=== PATIENT | female | born 1945 | race Caucasian/White ===

== ENCOUNTER 2017-09-19 18:53 | Inpatient (IN) | payer MEDICARE, OTHER ==
[2017-09-19 21:05] LABS: ADD MAN DIFF? NO
[2017-09-19 21:08] LABS: BASOPHILS % 0.2 % (0.0-2.0); HEMATOCRIT 36.6 % (37.0-47.0); LYMPHOCYTES % 20.3 % (15.0-51.0); MEAN CORPUSCULAR HEMOGLOBIN 31.5 pg (29.0-33.0); MEAN CORPUSCULAR HGB CONC 35.5 g/dl (32.0-37.0); MEAN CORPUSCULAR VOLUME 88.6 fl (82.0-101.0); MEAN PLATELET VOLUME 9.3 fl (7.4-10.4); MONOCYTE # 1.3 10^3/ul (0.3-0.9); MONOCYTES % 12.8 % (0.0-11.0); NEUTROPHIL # 6.7 10^3/ul (1.6-7.5); NEUTROPHILS % 66.4 % (39.0-77.0); PLATELET COUNT 375 10^3/UL (140-415); RED BLOOD COUNT 4.13 10^6/ul (4.20-5.40)
[2017-09-19] MEDS: ONDANSETRON 4 MG INJ IV ×3 (21:18→23:49)
[2017-09-19] MEDS: SOD CHLORIDE 0.9% 1,000 ML IV (21:18)
[2017-09-19 21:31] LABS: ALANINE AMINOTRANSFERASE 37 IU/L (13-69); ALBUMIN 5.1 g/dl (3.3-4.9); ALKALINE PHOSPHATASE 96 IU/L (42-121); ANION GAP 20 (8-16); ASPARTATE AMINO TRANSFERASE 45 IU/L (15-46); BILIRUBIN,INDIRECT 0.6 mg/dl (0-1.1); BILIRUBIN,TOTAL 0.6 mg/dl (0.2-1.3); BLOOD UREA NITROGEN 24 mg/dl (7-20); CALCIUM 9.4 mg/dl (8.4-10.2); CARBON DIOXIDE 32 mmol/L (21-31); CHLORIDE 93 mmol/L (97-110); CREATININE 0.72 mg/dl (0.44-1.00); GLUCOSE 126 mg/dl (70-220); LIPASE 71 U/L (23-300); SODIUM 142 mmol/L (135-144); TOTAL PROTEIN 8.5 g/dl (6.1-8.1)
[2017-09-19 21:33] LABS: POTASSIUM 2.5 mmol/L (3.5-5.1)
[2017-09-19 21:41] LABS: ADD UMIC YES; UR ASCORBIC ACID 40 mg/dL (NEGATIVE); UR BACTERIA FEW /HPF (NONE SEEN); UR BILIRUBIN (Dip) NEGATIVE (NEGATIVE); UR BLOOD (Dip) NEGATIVE (NEGATIVE); UR CLARITY CLEAR (CLEAR); UR COLOR AMBER (YELLOW); UR GLUCOSE (Dip) NEGATIVE (NEGATIVE); UR KETONES (Dip) TRACE mg/dL (NEGATIVE); UR LEUKOCYTE ESTERASE (Dip) NEGATIVE Leu/ul (NEGATIVE); UR NITRITE (Dip) NEGATIVE (NEGATIVE); UR RBC 3 /HPF (0-5); UR SPECIFIC GRAVITY (Dip) 1.021 (1.003-1.030); UR TOTAL PROTEIN (Dip) 2+ mg/dl (NEGATIVE); UR UROBILINOGEN (Dip) 1+ mg/dL (NEGATIVE); UR WBC 2 /HPF (0-5)
[2017-09-19 21:43] LABS: TROPONIN-I < 0.010 ng/ml (0.000-0.120)
[2017-09-19] MEDS: morphine 4 MG/ML VIAL IV (22:24)
[2017-09-20] MEDS ORDERED: NACL 0.9% 3 ML SYG IV
[2017-09-20] MEDS ORDERED: ACETAMINOPHEN 325 MG TAB PO
[2017-09-20] MEDS ORDERED: ONDANSETRON 4 MG INJ IV
[2017-09-20] MEDS: POTASSIUM BICARBONATE 25 MEQ TAB PO (00:18)
[2017-09-20] MEDS: METOCLOPRAMIDE 10 MG INJ IV ×4 (01:30→23:12)
[2017-09-20] MEDS: ACETAMINOPHEN 1000MG/100ML IV 100 ML IVPB (02:02)
[2017-09-20] MEDS: D5W-0.45 NACL + KCL 40 MEQ 1,000 ML IV ×4 (02:03→23:11)
[2017-09-20] MEDS ORDERED: PANTOPRAZOLE 40 MG INJ (04:52)
[2017-09-20] MEDS: HYDROmorphONE 0.5 MG/0.5 ML SYG IV (04:54)
[2017-09-20] MEDS: PANTOPRAZOLE 40 MG INJ IV (05:00)
[2017-09-20 06:33] LABS: ADD MAN DIFF? NO
[2017-09-20 06:40] LABS: BASOPHILS % 0.2 % (0.0-2.0); EOSINOPHILS % 0.2 % (0.0-7.0); HEMATOCRIT 33.9 % (37.0-47.0); HEMOGLOBIN 11.6 g/dl (12.0-16.0); LYMPHOCYTES # 2.1 10^3/ul (0.8-2.9); LYMPHOCYTES % 22.5 % (15.0-51.0); MEAN CORPUSCULAR HEMOGLOBIN 30.5 pg (29.0-33.0); MEAN CORPUSCULAR HGB CONC 34.2 g/dl (32.0-37.0); MEAN CORPUSCULAR VOLUME 89.2 fl (82.0-101.0); MEAN PLATELET VOLUME 9.7 fl (7.4-10.4); MONOCYTES % 11.2 % (0.0-11.0); NEUTROPHILS % 65.7 % (39.0-77.0); PLATELET COUNT 346 10^3/UL (140-415); RED CELL DISTRIBUTION WIDTH 12.1 % (11.5-14.5)
[2017-09-20 06:40] LABS: WHITE BLOOD COUNT 9.1 10^3/ul (4.8-10.8)
[2017-09-20] MEDS: HYDROmorphONE 1 MG/ML SYG IV ×4 (06:47→23:12)
[2017-09-20 07:14] LABS: MAGNESIUM 2.4 mg/dl (1.7-2.5)
[2017-09-20 07:47] LABS: ALANINE AMINOTRANSFERASE 33 IU/L (13-69); ALBUMIN 4.2 g/dl (3.3-4.9); ALKALINE PHOSPHATASE 70 IU/L (42-121); ANION GAP 15 (8-16); ASPARTATE AMINO TRANSFERASE 41 IU/L (15-46); BILIRUBIN,INDIRECT 0.5 mg/dl (0-1.1); BILIRUBIN,TOTAL 0.5 mg/dl (0.2-1.3); BLOOD UREA NITROGEN 20 mg/dl (7-20); CALCIUM 8.7 mg/dl (8.4-10.2); CARBON DIOXIDE 30 mmol/L (21-31); CHLORIDE 100 mmol/L (97-110); CREATININE 0.62 mg/dl (0.44-1.00); GLUCOSE 130 mg/dl (70-220); SODIUM 142 mmol/L (135-144); TOTAL PROTEIN 7.2 g/dl (6.1-8.1)
[2017-09-20 08:04] LABS: POTASSIUM 2.8 mmol/L (3.5-5.1)
[2017-09-20] MEDS: POTASSIUM CHLORIDE 100 ML IVPB ×2 (09:00→10:58)
[2017-09-20] MEDS: ENOXAPARIN 30 MG/0.3 ML SYG SC (09:04)
[2017-09-20] MEDS: ONDANSETRON 4 MG INJ IV (10:59)
[2017-09-20 16:23] LABS: POTASSIUM 3.5 mmol/L (3.5-5.1)
[2017-09-21] MEDS: HYDROmorphONE 1 MG/ML SYG IV ×4 (05:48→20:30)
[2017-09-21] MEDS: PANTOPRAZOLE 40 MG INJ IV (05:48)
[2017-09-21] MEDS: METOCLOPRAMIDE 10 MG INJ IV ×2 (05:48→15:12)
[2017-09-21 07:17] LABS: ALANINE AMINOTRANSFERASE 32 IU/L (13-69); ALBUMIN/GLOBULIN RATIO 1.48; ALKALINE PHOSPHATASE 57 IU/L (42-121); ANION GAP 13 (8-16); ASPARTATE AMINO TRANSFERASE 38 IU/L (15-46); BILIRUBIN,INDIRECT 0.3 mg/dl (0-1.1); BILIRUBIN,TOTAL 0.3 mg/dl (0.2-1.3); BLOOD UREA NITROGEN 12 mg/dl (7-20); CALCIUM 8.6 mg/dl (8.4-10.2); CARBON DIOXIDE 26 mmol/L (21-31); CHLORIDE 104 mmol/L (97-110); CREATININE 0.54 mg/dl (0.44-1.00); GLUCOSE 129 mg/dl (70-220); SODIUM 139 mmol/L (135-144); TOTAL PROTEIN 6.7 g/dl (6.1-8.1)
[2017-09-21] MEDS: D5W-0.45 NACL + KCL 40 MEQ 1,000 ML IV ×2 (07:59→16:34)
[2017-09-21] MEDS: ONDANSETRON 4 MG INJ IV ×2 (08:03→20:30)
[2017-09-21] MEDS: ENOXAPARIN 30 MG/0.3 ML SYG SC (08:05)
[2017-09-21] MEDS: ACETAMINOPHEN 1000MG/100ML IV 100 ML IVPB (12:52)
[2017-09-22] MEDS: HYDROmorphONE 1 MG/ML SYG IV ×4 (02:19→23:45)
[2017-09-22] MEDS: D5W-0.45 NACL + KCL 40 MEQ 1,000 ML IV ×3 (02:20→22:43)
[2017-09-22] MEDS: METOCLOPRAMIDE 10 MG INJ IV (03:55)
[2017-09-22] MEDS: hydrALAzine 20 MG INJ IV (03:55)
[2017-09-22] MEDS: PANTOPRAZOLE 40 MG INJ IV (06:04)
[2017-09-22] MEDS: ONDANSETRON 4 MG INJ IV (06:04)
[2017-09-22 06:33] LABS: ALANINE AMINOTRANSFERASE 70 IU/L (13-69); ALBUMIN/GLOBULIN RATIO 1.42; ALKALINE PHOSPHATASE 66 IU/L (42-121); ANION GAP 15 (8-16); ASPARTATE AMINO TRANSFERASE 69 IU/L (15-46); BILIRUBIN,INDIRECT 0.4 mg/dl (0-1.1); BILIRUBIN,TOTAL 0.4 mg/dl (0.2-1.3); BLOOD UREA NITROGEN 10 mg/dl (7-20); CALCIUM 9.1 mg/dl (8.4-10.2); CARBON DIOXIDE 24 mmol/L (21-31); CHLORIDE 102 mmol/L (97-110); CREATININE 0.44 mg/dl (0.44-1.00); GLUCOSE 120 mg/dl (70-220); SODIUM 137 mmol/L (135-144); TOTAL PROTEIN 6.8 g/dl (6.1-8.1)
[2017-09-22 06:34] LABS: PHOSPHORUS 3.2 mg/dl (2.5-4.9)
[2017-09-22 15:40] LABS: INR 1.08; PROTIME 14.1 Sec (11.9-14.9); PT RATIO 1.1
[2017-09-22 15:41] LABS: PARTIAL THROMBOPLASTIN TIME 22.2 Sec (25.0-35.0)
[2017-09-22] MEDS: ENOXAPARIN 30 MG/0.3 ML SYG SC (16:48)
[2017-09-22 17:56] LABS: AMPHETAMINE/METHAMPHETAMINE Negative (NEGATIVE); BARBITURATES Positive (NEGATIVE); BENZODIAZEPINES Negative (NEGATIVE); OPIATES Positive (NEGATIVE)
[2017-09-22 17:58] LABS: CANNABINOIDS Negative (NEGATIVE)
[2017-09-22 17:59] LABS: COCAINE Negative (NEGATIVE)
[2017-09-23] MEDS: ONDANSETRON 4 MG INJ IV ×2 (02:10→09:06)
[2017-09-23] MEDS: hydrALAzine 20 MG INJ IV ×4 (02:10→20:53)
[2017-09-23] MEDS: HYDROmorphONE 1 MG/ML SYG IV ×2 (02:10→05:29)
[2017-09-23] MEDS: D5W-0.45 NACL + KCL 40 MEQ 1,000 ML IV ×2 (02:14→12:27)
[2017-09-23] MEDS: PANTOPRAZOLE 40 MG INJ IV (05:28)
[2017-09-23 05:39] LABS: ADD MAN DIFF? NO
[2017-09-23 05:46] LABS: WHITE BLOOD COUNT 9.5 10^3/ul (4.8-10.8)
[2017-09-23 05:46] LABS: BASOPHILS % 0.3 % (0.0-2.0); EOSINOPHILS % 0.4 % (0.0-7.0); HEMATOCRIT 35.2 % (37.0-47.0); HEMOGLOBIN 12.1 g/dl (12.0-16.0); LYMPHOCYTES % 31.3 % (15.0-51.0); MEAN CORPUSCULAR HEMOGLOBIN 30.5 pg (29.0-33.0); MEAN CORPUSCULAR HGB CONC 34.4 g/dl (32.0-37.0); MEAN CORPUSCULAR VOLUME 88.7 fl (82.0-101.0); MEAN PLATELET VOLUME 9.2 fl (7.4-10.4); MONOCYTES % 10.6 % (0.0-11.0); NEUTROPHIL # 5.4 10^3/ul (1.6-7.5); PLATELET COUNT 367 10^3/UL (140-415); RED BLOOD COUNT 3.97 10^6/ul (4.20-5.40); RED CELL DISTRIBUTION WIDTH 11.6 % (11.5-14.5)
[2017-09-23 05:55] LABS: ANION GAP 11 (8-16); BLOOD UREA NITROGEN 10 mg/dl (7-20); CALCIUM 8.5 mg/dl (8.4-10.2); CARBON DIOXIDE 25 mmol/L (21-31); CHLORIDE 103 mmol/L (97-110); CREATININE 0.43 mg/dl (0.44-1.00); GLUCOSE 114 mg/dl (70-220); POTASSIUM 3.8 mmol/L (3.5-5.1); SODIUM 135 mmol/L (135-144)
[2017-09-23] MEDS: ENOXAPARIN 30 MG/0.3 ML SYG SC (08:49)
[2017-09-23] MEDS: BISACODYL (EC) 5 MG TAB PO (09:29)
[2017-09-23] MEDS: METOCLOPRAMIDE 10 MG INJ IV ×2 (12:25→18:59)
[2017-09-23] MEDS: ACETAMINOPHEN 325 MG TAB PO (17:15)
[2017-09-23] MEDS: ZOLPIDEM 5 MG TAB PO (20:52)
[2017-09-24] MEDS: PANTOPRAZOLE 40 MG INJ IV (05:16)
[2017-09-24] MEDS: D5W-0.45 NACL + KCL 40 MEQ 1,000 ML IV ×2 (05:16→14:43)
[2017-09-24 06:29] LABS: ADD MAN DIFF? NO
[2017-09-24 06:32] LABS: BASOPHILS % 0.1 % (0.0-2.0); EOSINOPHILS # 0.1 10^3/ul (0.0-0.5); EOSINOPHILS % 0.7 % (0.0-7.0); HEMATOCRIT 34.7 % (37.0-47.0); HEMOGLOBIN 12.1 g/dl (12.0-16.0); LYMPHOCYTES # 2.1 10^3/ul (0.8-2.9); LYMPHOCYTES % 25.2 % (15.0-51.0); MEAN CORPUSCULAR HEMOGLOBIN 30.8 pg (29.0-33.0); MEAN CORPUSCULAR HGB CONC 34.9 g/dl (32.0-37.0); MEAN CORPUSCULAR VOLUME 88.3 fl (82.0-101.0); MEAN PLATELET VOLUME 9.8 fl (7.4-10.4); MONOCYTE # 1.2 10^3/ul (0.3-0.9); MONOCYTES % 13.8 % (0.0-11.0); NEUTROPHILS % 59.7 % (39.0-77.0); PLATELET COUNT 428 10^3/UL (140-415); RED BLOOD COUNT 3.93 10^6/ul (4.20-5.40); RED CELL DISTRIBUTION WIDTH 11.9 % (11.5-14.5)
[2017-09-24 06:32] LABS: WHITE BLOOD COUNT 8.4 10^3/ul (4.8-10.8)
[2017-09-24 07:06] LABS: AMYLASE 94 U/L (11-123); ANION GAP 11 (8-16); BLOOD UREA NITROGEN 7 mg/dl (7-20); CALCIUM 8.9 mg/dl (8.4-10.2); CARBON DIOXIDE 25 mmol/L (21-31); CHLORIDE 101 mmol/L (97-110); CREATININE 0.48 mg/dl (0.44-1.00); GLUCOSE 109 mg/dl (70-220); LIPASE 257 U/L (23-300); POTASSIUM 3.2 mmol/L (3.5-5.1); SODIUM 134 mmol/L (135-144)
[2017-09-24 07:41] LABS: ERYTHROCYTE SEDIMENTATION RATE 10 mm/Hr (0-30)
[2017-09-24] MEDS: METOCLOPRAMIDE 10 MG INJ IV ×2 (08:04→14:32)
[2017-09-24] MEDS: ENOXAPARIN 30 MG/0.3 ML SYG SC (08:07)
[2017-09-24] MEDS: ONDANSETRON 4 MG INJ IV ×2 (09:14→18:42)
[2017-09-24] MEDS: POTASSIUM CHLORIDE 100 ML IVPB (15:42)
[2017-09-24] MEDS: POTASSIUM CHLORIDE (SR) 20 MEQ TAB PO ×2 (17:24→18:34)
[2017-09-24] MEDS: METOCLOPRAMIDE 5 MG TAB PO (20:35)
[2017-09-24] MEDS: ACETAMINOPHEN 325 MG TAB PO (20:35)
[2017-09-24] MEDS: DIVALPROEX (ER) 500 MG TAB PO (20:36)
[2017-09-24] MEDS: ZOLPIDEM 5 MG TAB PO (21:27)
[2017-09-25] MEDS: PANTOPRAZOLE (EC) 40 MG TAB PO (06:21)
[2017-09-25 06:29] LABS: ANION GAP 11 (8-16); BLOOD UREA NITROGEN 8 mg/dl (7-20); CALCIUM 8.6 mg/dl (8.4-10.2); CARBON DIOXIDE 25 mmol/L (21-31); CHLORIDE 107 mmol/L (97-110); CREATININE 0.48 mg/dl (0.44-1.00); GLUCOSE 106 mg/dl (70-220); POTASSIUM 3.9 mmol/L (3.5-5.1); SODIUM 139 mmol/L (135-144)
[2017-09-25 06:29] LABS: MAGNESIUM 1.9 mg/dl (1.7-2.5)
[2017-09-25] MEDS: METOCLOPRAMIDE 5 MG TAB PO ×3 (10:07→20:55)
[2017-09-25] MEDS: ENOXAPARIN 30 MG/0.3 ML SYG SC (10:09)
[2017-09-25] MEDS: ACETAMINOPHEN 325 MG TAB PO (14:35)
[2017-09-25] MEDS: ZOLPIDEM 5 MG TAB PO (20:55)
[2017-09-25] MEDS: DIVALPROEX (ER) 500 MG TAB PO (20:56)
[2017-09-26] MEDS: PANTOPRAZOLE (EC) 40 MG TAB PO (06:21)
[2017-09-26] MEDS: ACETAMINOPHEN 325 MG TAB PO ×2 (07:36→14:21)
[2017-09-26] MEDS: METOCLOPRAMIDE 5 MG TAB PO ×2 (08:33→14:21)
[2017-09-26] MEDS: ENOXAPARIN 30 MG/0.3 ML SYG SC (08:34)
== END 2017-09-26 18:50 | disposition home or self-care (01) | DRG 641 ==
LOC: PP2 23:50 → E/R 18:53
DX: E86.0 Dehydration (principal); E87.6 Hypokalemia; G43.909 Migraine, unspecified, not intractable, without status migrainosus; R11.2 Nausea with vomiting, unspecified; R10.84 Generalized abdominal pain
CPT/HCPCS: 36415; 70450; 74176; 80048; 80053; 80307; 81001; 82150; 83690; 83735; 84100; 84132; 84443; 84484; 85025; 85610; 85651; 85730; 92526; 92610; 93005; 96374; 96375; 96376; 97162; 99285-25; G0378

== ENCOUNTER 2018-08-02 02:48 | Emergency (ER) | payer MEDICARE, OTHER ==
[2018-08-02] MEDS: morphine 4 MG/ML VIAL IV (03:31)
[2018-08-02] MEDS: ONDANSETRON 4 MG INJ IV ×2 (03:31→04:02)
[2018-08-02] MEDS: SOD CHLORIDE 0.9% 500 ML IV (03:31)
[2018-08-02 03:48] LABS: ADD MAN DIFF? NO
[2018-08-02 04:00] LABS: ADD UMIC YES; UR ASCORBIC ACID 40 mg/dL (NEGATIVE); UR BILIRUBIN (Dip) NEGATIVE (NEGATIVE); UR BLOOD (Dip) NEGATIVE (NEGATIVE); UR CLARITY CLEAR (CLEAR); UR COLOR YELLOW (YELLOW); UR GLUCOSE (Dip) NEGATIVE (NEGATIVE); UR KETONES (Dip) 1+ mg/dL (NEGATIVE); UR LEUKOCYTE ESTERASE (Dip) TRACE Leu/ul (NEGATIVE); UR NITRITE (Dip) NEGATIVE (NEGATIVE); UR RBC 2 /HPF (0-5); UR SPECIFIC GRAVITY (Dip) 1.017 (1.003-1.030); UR TOTAL PROTEIN (Dip) 1+ mg/dl (NEGATIVE); UR UROBILINOGEN (Dip) NEGATIVE (NEGATIVE); UR WBC 2 /HPF (0-5)
[2018-08-02 04:06] LABS: WHITE BLOOD COUNT 6.6 10^3/ul (4.8-10.8)
[2018-08-02 04:06] LABS: BASOPHIL # 0.1 10^3/ul (0.0-0.1); BASOPHILS % 0.8 % (0.0-2.0); EOSINOPHILS # 0.3 10^3/ul (0.0-0.5); EOSINOPHILS % 3.9 % (0.0-7.0); HEMATOCRIT 34.2 % (37.0-47.0); HEMOGLOBIN 11.7 g/dl (12.0-16.0); LYMPHOCYTES # 1.8 10^3/ul (0.8-2.9); LYMPHOCYTES % 26.8 % (15.0-51.0); MEAN CORPUSCULAR HEMOGLOBIN 29.9 pg (29.0-33.0); MEAN CORPUSCULAR HGB CONC 34.2 g/dl (32.0-37.0); MEAN CORPUSCULAR VOLUME 87.5 fl (82.0-101.0); MEAN PLATELET VOLUME 9.8 fl (7.4-10.4); MONOCYTE # 0.5 10^3/ul (0.3-0.9); NEUTROPHILS % 59.9 % (39.0-77.0); PLATELET COUNT 417 10^3/UL (140-415); RED BLOOD COUNT 3.91 10^6/ul (4.20-5.40)
[2018-08-02 04:12] LABS: LACTIC ACID 1.6 mmol/L (0.5-2.0)
[2018-08-02 04:14] LABS: ALANINE AMINOTRANSFERASE 14 IU/L (13-69); ALBUMIN 4.7 g/dl (3.3-4.9); ALBUMIN/GLOBULIN RATIO 1.38; ALKALINE PHOSPHATASE 97 IU/L (42-121); ANION GAP 13 (5-13); ASPARTATE AMINO TRANSFERASE 25 IU/L (15-46); BILIRUBIN,INDIRECT 0.4 mg/dl (0-1.1); BILIRUBIN,TOTAL 0.4 mg/dl (0.2-1.3); BLOOD UREA NITROGEN 14 mg/dl (7-20); CALCIUM 9.2 mg/dl (8.4-10.2); CARBON DIOXIDE 26 mmol/L (21-31); CHLORIDE 106 mmol/L (97-110); CREATININE 0.62 mg/dl (0.44-1.00); GLUCOSE 150 mg/dl (70-220); LIPASE 54 U/L (23-300); POTASSIUM 3.1 mmol/L (3.5-5.1); SODIUM 145 mmol/L (135-144); TOTAL PROTEIN 8.1 g/dl (6.1-8.1)
[2018-08-02 04:25] LABS: TROPONIN-I < 0.012 ng/ml (0.000-0.120)
[2018-08-02] MEDS: PROCHLORPERAZINE 10 MG INJ IV (04:43)
== END 2018-08-02 07:13 | disposition home or self-care (01) ==
LOC: E/R 02:48
DX: R11.10 Vomiting, unspecified (principal); I10 Essential (primary) hypertension; R42 Dizziness and giddiness; Z87.891 Personal history of nicotine dependence
CPT/HCPCS: 36415; 70450; 71045; 74176; 80053; 81001; 83605; 83690; 84484; 85025; 93005; 96374; 96375; 96376; 99285-25

== ENCOUNTER 2018-10-22 21:13 | Emergency (ER) | payer MEDICARE, OTHER ==
[2018-10-22 22:12] LABS: ADD MAN DIFF? NO
[2018-10-22 22:14] LABS: BASOPHILS % 0.3 % (0.0-2.0); EOSINOPHILS % 0.1 % (0.0-7.0); HEMATOCRIT 37.9 % (37.0-47.0); HEMOGLOBIN 12.7 g/dl (12.0-16.0); LYMPHOCYTES # 1.7 10^3/ul (0.8-2.9); LYMPHOCYTES % 13.1 % (15.0-51.0); MEAN CORPUSCULAR HEMOGLOBIN 29.4 pg (29.0-33.0); MEAN CORPUSCULAR HGB CONC 33.5 g/dl (32.0-37.0); MEAN CORPUSCULAR VOLUME 87.7 fl (82.0-101.0); MEAN PLATELET VOLUME 9.3 fl (7.4-10.4); MONOCYTE # 0.5 10^3/ul (0.3-0.9); MONOCYTES % 3.9 % (0.0-11.0); NEUTROPHIL # 10.4 10^3/ul (1.6-7.5); NEUTROPHILS % 81.6 % (39.0-77.0); PLATELET COUNT 543 10^3/UL (140-415); RED BLOOD COUNT 4.32 10^6/ul (4.20-5.40); RED CELL DISTRIBUTION WIDTH 13.2 % (11.5-14.5)
[2018-10-22 22:14] LABS: WHITE BLOOD COUNT 12.8 10^3/ul (4.8-10.8)
[2018-10-22] MEDS: METOCLOPRAMIDE 10 MG INJ IV (22:16)
[2018-10-22] MEDS: DIPHENHYDRAMINE 50 MG INJ IV (22:16)
[2018-10-22 22:30] LABS: ALANINE AMINOTRANSFERASE 29 IU/L (13-69); ALBUMIN 5.1 g/dl (3.3-4.9); ALBUMIN/GLOBULIN RATIO 1.34; ALKALINE PHOSPHATASE 101 IU/L (42-121); ANION GAP 14 (5-13); ASPARTATE AMINO TRANSFERASE 36 IU/L (15-46); BILIRUBIN,INDIRECT 0.3 mg/dl (0-1.1); BILIRUBIN,TOTAL 0.3 mg/dl (0.2-1.3); BLOOD UREA NITROGEN 11 mg/dl (7-20); CALCIUM 10.1 mg/dl (8.4-10.2); CARBON DIOXIDE 22 mmol/L (21-31); CHLORIDE 107 mmol/L (97-110); CREATININE 0.64 mg/dl (0.44-1.00); GLUCOSE 148 mg/dl (70-220); LIPASE 66 U/L (23-300); POTASSIUM 3.2 mmol/L (3.5-5.1); SODIUM 143 mmol/L (135-144); TOTAL PROTEIN 8.9 g/dl (6.1-8.1)
[2018-10-22 22:42] LABS: TROPONIN-I < 0.012 ng/ml (0.000-0.120)
[2018-10-23] MEDS: OXYCODONE/ACETAMINOPHEN (10/325) TAB PO (00:04)
[2018-10-23 01:11] LABS: ADD UMIC YES; UR ASCORBIC ACID NEGATIVE (NEGATIVE); UR BILIRUBIN (Dip) NEGATIVE (NEGATIVE); UR BLOOD (Dip) NEGATIVE (NEGATIVE); UR CLARITY CLEAR (CLEAR); UR COLOR YELLOW (YELLOW); UR GLUCOSE (Dip) NEGATIVE (NEGATIVE); UR KETONES (Dip) 1+ mg/dL (NEGATIVE); UR LEUKOCYTE ESTERASE (Dip) NEGATIVE Leu/ul (NEGATIVE); UR NITRITE (Dip) NEGATIVE (NEGATIVE); UR RBC 1 /HPF (0-5); UR SPECIFIC GRAVITY (Dip) 1.011 (1.003-1.030); UR TOTAL PROTEIN (Dip) 1+ mg/dl (NEGATIVE); UR UROBILINOGEN (Dip) NEGATIVE (NEGATIVE); UR WBC 3 /HPF (0-5)
== END 2018-10-23 00:44 | disposition home or self-care (01) ==
LOC: E/R 21:13
DX: R11.10 Vomiting, unspecified (principal); I10 Essential (primary) hypertension
CPT/HCPCS: 80053; 81001; 83690; 84484; 85025; 93005; 96374; 96375; 99284-25

== ENCOUNTER 2018-11-23 15:34 | Emergency (ER) | payer MEDICARE, OTHER ==
[2018-11-23] MEDS: ONDANSETRON (ODT) 4 MG TAB ODT (16:30)
[2018-11-23] MEDS: LORAZEPAM 1 MG TAB PO (17:24)
[2018-11-23] MEDS: LIDOCAINE/MYLANTA 40 ML BTL PO (17:24)
== END 2018-11-23 18:16 | disposition home or self-care (01) ==
LOC: E/R 15:34
DX: S06.0X0A Concussion without loss of consciousness, initial encounter (principal); K21.9 Gastro-esophageal reflux disease without esophagitis; I10 Essential (primary) hypertension; W22.8XXA Striking against or struck by other objects, initial encounter; Y92.9 Unspecified place or not applicable
CPT/HCPCS: 70450; 99284-25

== ENCOUNTER 2018-11-24 18:05 | Emergency (ER) | payer MEDICARE, OTHER ==
[2018-11-24 21:41] LABS: ADD MAN DIFF? NO
[2018-11-24 21:49] LABS: BASOPHILS % 0.4 % (0.0-2.0); EOSINOPHILS % 0.6 % (0.0-7.0); HEMATOCRIT 38.5 % (37.0-47.0); HEMOGLOBIN 12.4 g/dl (12.0-16.0); LYMPHOCYTES # 1.8 10^3/ul (0.8-2.9); MEAN CORPUSCULAR HEMOGLOBIN 28.1 pg (29.0-33.0); MEAN CORPUSCULAR HGB CONC 32.2 g/dl (32.0-37.0); MEAN CORPUSCULAR VOLUME 87.1 fl (82.0-101.0); MEAN PLATELET VOLUME 9.7 fl (7.4-10.4); MONOCYTE # 0.6 10^3/ul (0.3-0.9); MONOCYTES % 9.5 % (0.0-11.0); NEUTROPHIL # 4.2 10^3/ul (1.6-7.5); NEUTROPHILS % 62.1 % (39.0-77.0); PLATELET COUNT 472 10^3/UL (140-415); RED BLOOD COUNT 4.42 10^6/ul (4.20-5.40); RED CELL DISTRIBUTION WIDTH 12.3 % (11.5-14.5)
[2018-11-24 21:49] LABS: WHITE BLOOD COUNT 6.7 10^3/ul (4.8-10.8)
[2018-11-24 21:51] LABS: ADD UMIC YES; UR ASCORBIC ACID NEGATIVE (NEGATIVE); UR BILIRUBIN (Dip) NEGATIVE (NEGATIVE); UR BLOOD (Dip) NEGATIVE (NEGATIVE); UR CLARITY CLEAR (CLEAR); UR COLOR YELLOW (YELLOW); UR GLUCOSE (Dip) NEGATIVE (NEGATIVE); UR KETONES (Dip) 2+ mg/dL (NEGATIVE); UR LEUKOCYTE ESTERASE (Dip) NEGATIVE Leu/ul (NEGATIVE); UR NITRITE (Dip) NEGATIVE (NEGATIVE); UR RBC 1 /HPF (0-5); UR SPECIFIC GRAVITY (Dip) 1.018 (1.003-1.030); UR TOTAL PROTEIN (Dip) 1+ mg/dl (NEGATIVE); UR UROBILINOGEN (Dip) NEGATIVE (NEGATIVE); UR WBC 2 /HPF (0-5)
[2018-11-24] MEDS: ONDANSETRON 4 MG INJ IV ×2 (21:57→23:40)
[2018-11-24] MEDS: morphine 4 MG/ML VIAL IV (21:57)
[2018-11-24 22:06] LABS: ALANINE AMINOTRANSFERASE 23 IU/L (13-69); ALBUMIN 4.6 g/dl (3.3-4.9); ALBUMIN/GLOBULIN RATIO 1.39; ALKALINE PHOSPHATASE 84 IU/L (42-121); ANION GAP 13 (5-13); ASPARTATE AMINO TRANSFERASE 36 IU/L (15-46); BILIRUBIN,INDIRECT 0.4 mg/dl (0-1.1); BILIRUBIN,TOTAL 0.4 mg/dl (0.2-1.3); BLOOD UREA NITROGEN 12 mg/dl (7-20); CALCIUM 9.6 mg/dl (8.4-10.2); CARBON DIOXIDE 24 mmol/L (21-31); CHLORIDE 102 mmol/L (97-110); CREATININE 0.62 mg/dl (0.44-1.00); GLUCOSE 101 mg/dl (70-220); LIPASE 135 U/L (23-300); POTASSIUM 3.3 mmol/L (3.5-5.1); SODIUM 139 mmol/L (135-144); TOTAL PROTEIN 7.9 g/dl (6.1-8.1)
[2018-11-24 22:08] LABS: INR 1.04; PROTIME 13.7 Sec (11.9-14.9); PT RATIO 1.1
[2018-11-24 22:18] LABS: TROPONIN-I < 0.012 ng/ml (0.000-0.120)
== END 2018-11-25 01:05 | disposition home or self-care (01) ==
LOC: E/R 11-25 01:05
DX: R11.10 Vomiting, unspecified (principal); R10.9 Unspecified abdominal pain
CPT/HCPCS: 36415; 74176; 80053; 81001; 83690; 84484; 85025; 85610; 93005; 96374; 96375; 96376; 99285-25